=== PATIENT | female | born 1985 | race Caucasian/White ===

== ENCOUNTER → 2016-10-21 | Outpatient (CLI) | payer BC ==
--- NOTE | 2016-10-21 14:06 | EKG ---
Date Performed: 10/21/2016 Time Performed: 11:23:36 PTAGE: 31 years EKG: Sinus rhythm POSSIBLE LEFT ATRIAL ENLARGEMENT LOW QRS VOLTAGE IN PRECORDIAL LEADS POSSIBLE RIGHT VENTRICULAR COND UCTION DELAY Non-specific inferior T-wave changes No prior tracing for comparison. BORDERLINE ECG NO PREVIOUS TRACING DOCTOR: Delfina Winter Interpretating Date/Time 10/21/2016 14:04:10
== END ==
LOC: HCAV 11:12
PROVIDERS: ATTEND Obstetrics & Gynecology
DX: I44.1 Atrioventricular block, second degree (principal); R94.31 Abnormal electrocardiogram [ECG] [EKG]; O26.899 Other specified pregnancy related conditions, unspecified trimester
CPT/HCPCS: 93005

== ENCOUNTER → 2016-11-26 | Outpatient (CLI) | payer BC | LOC: HPND 10:39 | PROVIDERS: ATTEND Obstetrics & Gynecology | DX: O35.8XX0 Maternal care for other (suspected) fetal abnormality and damage, not applicable or unspecified (principal) | CPT/HCPCS: 76815 ==

== ENCOUNTER → 2016-12-25 | Outpatient (CLI) | payer BC | LOC: HPND 12:42 | PROVIDERS: ATTEND Obstetrics & Gynecology | DX: O35.8XX0 Maternal care for other (suspected) fetal abnormality and damage, not applicable or unspecified (principal); O09.292 Supervision of pregnancy with other poor reproductive or obstetric history, second trimester; O99.512 Diseases of the respiratory system complicating pregnancy, second trimester; O99.89 Other specified diseases and conditions complicating pregnancy, childbirth and the puerperium | CPT/HCPCS: 76811 ==

== ENCOUNTER → 2017-01-29 | Outpatient (CLI) | payer BC | LOC: HPND 12:34 | PROVIDERS: ATTEND Obstetrics & Gynecology | DX: O35.8XX0 Maternal care for other (suspected) fetal abnormality and damage, not applicable or unspecified (principal) | CPT/HCPCS: 76816; 76825; 76827; 93325 ==

== ENCOUNTER → 2017-03-13 | Outpatient (CLI) | payer BC | LOC: HPND 14:36 | PROVIDERS: ATTEND Obstetrics & Gynecology | DX: O35.8XX0 Maternal care for other (suspected) fetal abnormality and damage, not applicable or unspecified (principal); O99.512 Diseases of the respiratory system complicating pregnancy, second trimester; O26.892 Other specified pregnancy related conditions, second trimester | CPT/HCPCS: 76816 ==

== ENCOUNTER 2017-05-21 22:51 | Inpatient (IN) | payer BC ==
[~2017-05-21] VITALS: Ht 172.7 cm; Wt 68.0 kg
[2017-05-21] MEDS ORDERED: LACTATED RINGER'S 1000 ML INJ 1,000 ML IV PRN (23:55)
[2017-05-22] VITALS (55 sets, daily range): BP systolic 85–145; BP diastolic 57–94; PULSE 65–112; RESP 18–20; TEMP 98–98.2
[2017-05-22] MEDS ORDERED: LIDOCAINE HCL 1% 50 ML VIAL I-DERMAL PRN
[2017-05-22] MEDS ORDERED: PENICILLIN G POTASSIUM INJ 5,000,000 UNITS in SODIUM CHLORIDE 0.9% INJ 100 ML IV ONE ×2
[2017-05-22] MEDS ORDERED: SODIUM CHLORID 0.9% 500 ML INJ 500 ML IV PRN
[2017-05-22] MEDS ORDERED: LIDOCAINE HCL 1% 50 ML VIAL INFIL PRN
[2017-05-22] MEDS ORDERED: ONDANSETRON HCL 4 MG/2 ML VIAL IV PUSH PRN
[2017-05-22] MEDS ORDERED: OXYTOCIN 30 UNITS-500ML PREMIX 500 ML IV ONE
[2017-05-22] MEDS ORDERED: MINERAL OIL 10 ML VIAL TOPICAL PRN
--- NOTE | 2017-05-22 00:07 | PD ---
HPI Chief Complaint LOF Date Seen: May 21, 2017 Time Seen: 23:57 Travel History International Travel<30 Days: No Contact w/Intl Traveler<30Days: No Known Affected Area: No History of Present Illness HPI Pt is a 32y/o @ 39.2wks. She has PNC with Dr. Lauren. She presents for SROM at 5:30pm. Some bloody show. +ctx (2/10 in severity). +FM. PNC is complicated by an extensive medical and surgical history. Pt and state that years ago she was told by neurosx that she should not push for a vaginal delivery. She has not seen neurosx for quite some time or since conception. She and request a consult for clearance. They have a neurologist and state that both neurology and OBGYN have commented that they are uncertain why neurosx would have advised against. This was never followed up by the pt as an outpt. She has previously had an ANES consultation and was cleared for an epidural. is also complicated by a cystic hygroma (?resolved) and GBS+. Weeks Gestation: 39 Para: 0 : 2 Last Menstrual Period: May 22, 2017 History Past Medical History Narrative Medical h/o c. diff sona's syndrome migraines seizures 1 and 2 degree heart block Obstetric History Obstetric History 1. biochemical 2. current Past Surgical History Narrative Surgical appendectomy esophageal repair x5 feeding tube x3 spinal fusion x5 (cervical to thoracic) tonsillectomy Family History Family History: Negative Social History Alcohol Use: No Tobacco Use: No Substance Abuse: No Review of Systems Except as stated in HPI: all other systems reviewed are Neg Physical Exam Narrative GENERAL: Well-nourished, well-developed patient. SKIN: Warm and dry. HEAD: Normocephalic and atraumatic. EYES: No scleral icterus. ENT: No nasal drainage noted. Mucous membranes pink. ABDOMEN/GI: Abdomen soft, non-tender, gravid EXTREMITIES: No cyanosis NEUROLOGICAL: Awake and alert. Motor and sensory grossly within normal limits. FHTs: 130s, +accels, no decels, moderate variability, reactive TOCO: q2-3m CVX: 2/70/-2 Data Data Vital Signs Reviewed: Yes Group B Strep: Positive MDM Plan 32y/o @ 39.2wks with SROM and extensive medical/surgical history. -- admit to L&D -- FHTs cat 1 -- cvx /-2 with regular ctx q2-3m -- GBS+ (PCN ordered) -- s/p ANES consult and cleared for epidural -- CLD, qureshi/epidural PRN Dr. Leo (ironing machine operator) notified of pt status and plan of care. He was advised on pt's request for neurosx consultation for clearance. Courtesy admission orders placed. He will assume care of the pt. Diagnosis Diagnosis: Primary Impression: 39 weeks gestation of Additional Impressions: Rupture of membranes with clear amniotic fluid GBS (group B Streptococcus carrier), +RV culture, currently John Villaseñor MD May 22, 2017 00:07
[2017-05-22] MEDS ORDERED: SODIUM CHLOR 0.9% 1000 ML INJ 1,000 ML IV PRN (00:15)
[2017-05-22 01:25] LABS: AUTOMATED NEUTROPHIL # 8.9 TH/MM3 (1.8-7.7); BASOPHIL % 0.2 % (0.0-2.0); EOSINOPHIL # 0.1 TH/MM3 (0-0.4); EOSINOPHIL % 0.7 % (0.0-4.0); HEMATOCRIT 34.6 % (35.0-46.0); HEMO FLAGS DIFF FINAL; LYMPH % 13.7 % (9.0-44.0); LYMPHOCYTE # 1.5 TH/MM3 (1.0-4.8); MEAN CELL VOLUME 80.7 FL (80.0-100.0); MEAN CORPUSCULAR HEMOGLOBIN 27.4 PG (27.0-34.0); MEAN CORPUSCULAR HGB CONC 33.9 % (32.0-36.0); NEUT % 79.4 % (16.0-70.0); PLATELET COUNT 199 TH/MM3 (150-450); RED BLOOD COUNT 4.28 MIL/MM3 (4.00-5.30); RED CELL DISTRIBUTION WIDTH 13.2 % (11.6-17.2); WHITE BLOOD COUNT 11.2 TH/MM3 (4.0-11.0)
[2017-05-22 01:28] LABS: BLOOD, URINE NEG (NEG); COMMENT (UR) CULT NOT INDICATED; CULTURE IF INDICATED CULT NOT INDICATED; GLUCOSE,URINE NEG (NEG); KETONE, URINE NEG (NEG); MUCUS URINE FEW /lpf (OCC); NITRITE,URINE NEG (NEG); SQUAMOUS EPITHELIAL CELL URINE <1 /hpf (0-5); URINE COLOR LIGHT-YELLOW (YELLW/STRAW)
[2017-05-22] MEDS ORDERED: fentaNYL 2MCG-BUPIV 0.125% INJ 100 ML ONE (02:34)
[2017-05-22] MEDS: LACTATED RINGER'S 1000 ML INJ 1,000 ML IV SCH ×2 (03:00→04:44)
[2017-05-22] MEDS ORDERED: fentaNYL 2MCG-BUPIV 0.125% 100 ML EPIDURAL SCH (03:00)
[2017-05-22] MEDS ORDERED: ePHEDrine/NS 25 MG/5 ML SYR ONE (03:58)
[2017-05-22] MEDS ORDERED: PENICILLIN G POTASSIUM INJ 2,500,000 UNITS in SODIUM CHLORIDE 0.9% INJ 100 ML IV SCH (04:00)
[2017-05-22] MEDS ORDERED: ePHEDrine/NS 25 MG/5 ML SYR IV PUSH PRN (04:30)
[2017-05-22] MEDS ORDERED: NO SYSTEM NARCOTICS PRN (04:30)
[2017-05-22] MEDS ORDERED: DO NOT ADMINISTER ANTICOAGULANTS PRN (04:30)
[2017-05-22] MEDS ORDERED: SODIUM CHLORIDE 0.9% FLUSH 10 ML FLUSH IV FLUSH PRN (08:45)
[2017-05-22] MEDS ORDERED: ALUMINUM/MAGNESIUM/SIMETH 30 ML CUP PO PRN (08:45)
[2017-05-22] MEDS ORDERED: ONDANSETRON ODT 4 MG TAB PO PRN (08:45)
[2017-05-22] MEDS ORDERED: ACETAMINOPHEN 325 MG TAB PO PRN (08:45)
[2017-05-22] MEDS ORDERED: ZOLPIDEM TARTRATE 5 MG TAB PO PRN (08:45)
[2017-05-22] MEDS ORDERED: OXYTOCIN 30 UNITS-500ML PREMIX 500 ML IV SCH (09:00)
--- NOTE | 2017-05-22 09:07 | PD.OB.DELI ---
Weeks gestation: 39 Gest age assessed date: May 21, 2017 Gest age assessed time: 22:45 Pt started active labor?: Yes Medical induction of labor?: No Artificial rupture of membrane: Yes Anesthesia: Epidural Episiotomy: None Vaginal Delivery: Normal Presentation: Occiput anterior Nuchal Cord: None Delayed cord clamping (45 sec): Yes : Male Delivery date: May 22, 2017 Delivery time: 08:14 One Minute : 9 Five Minute : 9 Weight: 6#14oz Placenta: Spontaneous delivery, Intact, 3 vessel cord Laceration: Perineal laceration, 2 deg Repair: Vicryl running Estimated blood loss: 100mL Priscilla Lauren MD May 22, 2017 09:07
[2017-05-22] MEDS ORDERED: ACETAMIN 325 MG/BUTALBITAL 50 MG/CAFFEINE 40 MG TAB PO PRN (10:00)
[2017-05-22] MEDS: WITCH HAZEL 50%/GLYCERIN 12.5% 40 PAD JAR TOPICAL PRN (11:33)
[2017-05-22] MEDS: BENZOCAINE 20% TOPICAL SPRAY 60 ML CAN TOPICAL PRN (11:33)
[2017-05-22] MEDS: DOCUSATE SODIUM 50 MG/SENNA 8.6 MG TAB PO PRN (11:34)
[2017-05-22] MEDS: IBUPROFEN 600 MG TAB PO PRN ×2 (11:34→17:24)
[2017-05-22] MEDS ORDERED: DIPHTH/TETANUS/ACEL PERTUSSIS (BOOSTER) 0.5 ML VIAL/PFS IM ONE (16:00)
[2017-05-22] MEDS ORDERED: MEASLES, MUMPS, RUBELLA VACCINE 0.5 ML VIAL SQ ONE (16:00)
[2017-05-22] MEDS: SODIUM CHLORIDE 0.9% FLUSH 10 ML FLUSH IV FLUSH SCH (21:00)
[2017-05-23] MEDS: IBUPROFEN 600 MG TAB PO PRN ×4 (00:21→20:42)
[2017-05-23] MEDS: DOCUSATE SODIUM 50 MG/SENNA 8.6 MG TAB PO PRN ×2 (00:22→16:22)
[2017-05-23] MEDS ORDERED: PRAMOXINE 1% RECTAL FOAM 15 GM CAN RECTAL PRN (00:45)
[2017-05-23] MEDS ORDERED: HYDROCORTISONE/PRAMOXINE RECTAL FOAM 10 GM CAN RECTAL PRN (01:00)
[2017-05-23] MEDS: oxyCODONE/ACETAMINOPHEN 5 MG/325 MG TAB PO PRN ×4 (06:05→20:41)
--- NOTE | 2017-05-23 08:32 | HHI.OB ---
Subjective Post Day: 1 Remarks Doing well, pain is well controlled Tolerating diet well, baby is good Objective Vitals/I&O Vital Signs Date Time Temp Pulse Resp B/P (MAP) Pulse Ox O2 Delivery O2 Flow Rate FiO2 05/23/17 01:21 18 05/22/17 19:40 78 114/72 (86) 05/22/17 19:40 98.1 18 05/22/17 11:30 98.1 82 18 119/73 (88) 05/22/17 09:00 79 124/76 (92) 05/22/17 08:45 83 127/84 (98) 05/22/17 08:39 98.2 20 05/22/17 08:30 86 124/71 (88) Objective Remarks GENERAL: Well-nourished, well-developed patient. CARDIOVASCULAR: Regular rate and rhythm without murmurs, gallops, or rubs. RESPIRATORY: Breath sounds equal bilaterally. No accessory muscle use. ABDOMEN/GI: Abdomen soft, non-tender. Fundus: Firm, non-tender at umbilicus. GENITOURINARY: Light to moderate bleeding. EXTREMITIES: No cyanosis or edema, non-tender, without signs of DVT. Medications and IVs Current Medications Medications (Trade) Dose Ordered Sig/Martinez Route Start Time Stop Time Status Last Admin (NS Flush) 2 ml BID IV FLUSH 05/22/17 09:00 (NS Flush) 2 ml UNSCH PRN IV FLUSH 05/22/17 08:45 (Tylenol) 650 mg Q4H PRN PO 05/22/17 08:45 05/22/17 17:24 (Motrin) 600 mg Q6H PRN PO 05/22/17 08:45 05/23/17 06:05 (Percocet 5-325 Mg) 1 tab Q4H PRN PO 05/22/17 08:45 05/23/17 06:05 (Americaine 20% Top Spr) 1 spray Q4H PRN TOPICAL 05/22/17 08:45 05/22/17 11:33 (Tucks Pads) 1 applic QID PRN TOPICAL 05/22/17 08:45 05/22/17 11:33 (Celina-Colace) 2 tab Q12H PRN PO 05/22/17 08:45 05/23/17 00:22 (Ambien) 5 mg HS PRN PO 05/22/17 08:45 (Mag-Al Plus Susp Liq) 15 ml Q8H PRN PO 05/22/17 08:45 (Zofran Odt) 4 mg Q6H PRN PO 05/22/17 08:45 05/23/17 01:04 (Fioricet 325-50-40) 1 tab Q8H PRN PO 05/22/17 10:00 05/22/17 21:19 (Proctofoam Hc Rectal Foam) APPLY FOR HEMORHOID BLANK UNSCH PRN RECTAL 05/23/17 01:00 05/23/17 00:59 Assessment/Plan Problem List: (1) GBS (group B Streptococcus carrier), +RV culture, currently ICD Codes: O99.820 - Streptococcus B carrier state complicating Status: Acute (2) 39 weeks gestation of ICD Codes: Z3A.39 - 39 weeks gestation of Status: Acute (3) (spontaneous vaginal delivery) ICD Codes: O80 - Encounter for full-term uncomplicated delivery Assessment and Plan PPD #1 Doing well Home tomorrow Jasmyn Avelra MD May 23, 2017 08:32
[2017-05-23] MEDS: SODIUM CHLORIDE 0.9% FLUSH 10 ML FLUSH IV FLUSH SCH ×2 (09:00→21:00)
[2017-05-23 09:30] VITALS: BP 109/66; PULSE 75; RESP 20; TEMP 98.2
[2017-05-23] MEDS: BENZOCAINE 20% TOPICAL SPRAY 60 ML CAN TOPICAL PRN (13:40)
[2017-05-23] MEDS: WITCH HAZEL 50%/GLYCERIN 12.5% 40 PAD JAR TOPICAL PRN (13:40)
[2017-05-23 20:45] VITALS: BP 117/77; PULSE 75; RESP 18; TEMP 98
[2017-05-24] MEDS: oxyCODONE/ACETAMINOPHEN 5 MG/325 MG TAB PO PRN ×2 (03:11→11:45)
[2017-05-24] MEDS: DOCUSATE SODIUM 50 MG/SENNA 8.6 MG TAB PO PRN (03:11)
[2017-05-24] MEDS: IBUPROFEN 600 MG TAB PO PRN ×2 (03:11→11:45)
[2017-05-24 09:00] VITALS: BP 105/80; PULSE 75; RESP 2; TEMP 98.8
--- NOTE | 2017-05-24 14:11 | HHI.DCPOC ---
Discharge Care Plan Diagnosis: (1) (spontaneous vaginal delivery) (2) GBS (group B Streptococcus carrier), +RV culture, currently Report Symptoms to Your Doctor -Temperature above 100.5 degrees -Redness, of incision or excessive or foul smelling drainage -Unusual pain or calf pain -Increased vaginal bleeding -Painful or difficulty urinating -Feelings of extreme sadness or anxiety after 2 weeks Goals to Promote Your Health * To prevent worsening of your condition and complications * To maintain your health at the optimal level Directions to Meet Your Goals Take your medications as prescribed Follow your dietary instruction Follow activity as directed Ensure plenty of rest for recovery Drink fluids for hydration Keep your appointments as scheduled Take your immunizations and boosters as scheduled If your symptoms worsen call your PCP, if no PCP go to Urgent Care Center or Emergency Room Smoking is Dangerous to Your Health. Avoid second hand smoke Call the 24-hour crisis hotline for domestic abuse at Jasmyn Avelar MD May 24, 2017 14:11
[2017-05-24] MEDS ORDERED: OXYC1TAB63 PO (14:14)
[2017-05-24] MEDS ORDERED: IBUP-232 PO (14:14)
== END 2017-05-24 15:42 | disposition home or self-care (01) | DRG 775 ==
LOC: HOBED 22:51 → H2EA 05-22 00:09 → H1EA 05-22 10:21
PROVIDERS: ADMIT Obstetrics & Gynecology; ATTEND Obstetrics & Gynecology
PROC: 10E0XZZ Delivery of Products of Conception, External Approach (ICD-10-PCS; principal; 2017-05-22)
PROC: 0KQM0ZZ Repair Perineum Muscle, Open Approach (ICD-10-PCS; 2017-05-22)
PROC: 3E0R3BZ Introduction of Anesthetic Agent into Spinal Canal, Percutaneous Approach (ICD-10-PCS; 2017-05-22)
PROC: 00HU33Z Insertion of Infusion Device into Spinal Canal, Percutaneous Approach (ICD-10-PCS; 2017-05-22)
DX: O99.824 Streptococcus B carrier state complicating childbirth (principal); O99.353 Diseases of the nervous system complicating pregnancy, third trimester; G43.909 Migraine, unspecified, not intractable, without status migrainosus; O26.893 Other specified pregnancy related conditions, third trimester; O70.1 Second degree perineal laceration during delivery; Z37.0 Single live birth; Z3A.39 39 weeks gestation of pregnancy; Z98.1 Arthrodesis status
CPT/HCPCS: 59025; 80307; 81001; 85025; 86900; 86901; J2540; J7120